=== PATIENT | male | born 1975 | race Caucasian/White ===

== ENCOUNTER → 2017-05-05 | Outpatient (REF) | payer OTHER | LOC: M LAB REF 16:57 | PROVIDERS: ATTEND Physician Assistant | DX: B34.9 Viral infection, unspecified (principal) ==

== ENCOUNTER → 2017-08-05 | Outpatient (REF) | payer OTHER | LOC: M LAB REF 12:05 | DX: R50.9 Fever, unspecified (principal) ==

== ENCOUNTER → 2018-09-22 | Outpatient (REF) | payer OTHER ==
[2018-09-22 13:00] LABS: INFLUENZA A AMPLIFICATION NEGATIVE (NEGATIVE); INFLUENZA B AMPLIFICATION NEGATIVE (NEGATIVE)
== END ==
LOC: M LAB REF 11:54
PROVIDERS: ATTEND Physician Assistant
DX: J11.1 Influenza due to unidentified influenza virus with other respiratory manifestations (principal)

== ENCOUNTER 2023-06-18 08:21 | Day surgery (SDC) | payer OTHER ==
[~2023-06-18] VITALS: Ht 175.3 cm; Wt 139.7 kg
[~2023-06-18 08:21] MED LIST: ATOR40TA75 PO; DOXE25CA PO; LOSA50TA5 PO; NS 1,000 ML IV ONE; ZOLO100T PO
[2023-06-18] MEDS ORDERED: LIDOCAINE 2% 100MG/5ML SDV (FOR ANES.) As Ordered ONE (08:50)
[2023-06-18] MEDS ORDERED: propofoL 200 MG/20 ML VIAL As Ordered ONE ×2 (08:50→10:15)
[2023-06-18 10:22] VITALS: TEMP 97.9
[2023-06-18 10:39] VITALS: BP 125/69; O2SAT 96
== END 2023-06-18 10:41 | disposition home or self-care (01) ==
LOC: M OPP 08:21
PROVIDERS: ATTEND Internal Medicine Gastroenterology
DX: Z12.11 Encounter for screening for malignant neoplasm of colon (principal); Z12.12 Encounter for screening for malignant neoplasm of rectum; D12.3 Benign neoplasm of transverse colon; D12.4 Benign neoplasm of descending colon; Q43.8 Other specified congenital malformations of intestine; Z86.010 Personal history of colon polyps; Z80.0 Family history of malignant neoplasm of digestive organs; I10 Essential (primary) hypertension; E78.00 Pure hypercholesterolemia, unspecified; Z79.899 Other long term (current) drug therapy

== ENCOUNTER → 2025-05-14 | Outpatient (CLI) | payer OTHER ==
[~2025-05-14] MED LIST changes: +ISOVUE-300 61% 100 ML VIAL As Ordered ONE; +LIDOCAINE 1% MDV 20 ML VIAL As Ordered ONE; -NS 1,000 ML IV ONE; +TRIAMCINOLONE ACETONIDE SUSP 40MG/ML 1ML VIAL As Ordered ONE
== END ==
LOC: M RAD 14:48
PROVIDERS: ATTEND Orthopaedic Surgery
DX: M25.552 Pain in left hip (principal)
CPT/HCPCS: 20610; 77002; J3301; Q9967